=== PATIENT | male | born 1980 | race Caucasian/White ===

== ENCOUNTER 2024-02-19 04:43 | Emergency (ER) | payer SELFPAY ==
[~2024-02-19] VITALS: Ht 172.7 cm; Wt 74.8 kg
[2024-02-19 04:49] VITALS: BP 114/74; PULSE 76; RESP 15; TEMP 97.7; O2SAT 99
[2024-02-19] MEDS ORDERED: [UNRECOGNIZED DRUG - CODE] PO (05:26)
[2024-02-19] MEDS ORDERED: LAMO100T PO (05:38)
== END 2024-02-19 05:49 | disposition home or self-care (01) ==
LOC: MED 04:43
DX: F31.9 Bipolar disorder, unspecified (principal); Z76.0 Encounter for issue of repeat prescription; Z79.899 Other long term (current) drug therapy
CPT/HCPCS: 99281